=== PATIENT | male | born 1995 | race Caucasian/White ===

== ENCOUNTER 2024-01-15 22:27 | Emergency (ER) | payer OTHER ==
[~2024-01-15] VITALS: Ht 177.8 cm; Wt 90.0 kg
[~2024-01-15 22:27] MED LIST: DENIES CURRENT MEDS; DOXYCYCL HYC100 MG PO; SMZ-TMP DS1 TAB PO
[2024-01-15 22:30] VITALS: BP 165/73
[2024-01-15] MEDS ORDERED: NEOMYCIN-BACITRACIN-POLYMYXIN 0.5 GM/PAK PAK TOP ONE (22:40)
[2024-01-15] MEDS ORDERED: KEFLEX500 MG PO ×2 (23:03→23:32)
[2024-01-15] MEDS ORDERED: CEPHALEXIN MONOHYDRATE 500 MG/CAP PO ONE (23:05)
== END 2024-01-15 23:30 | disposition home or self-care (01) | DRG 605 ==
LOC: ED 22:27
DX: S61.432A Puncture wound without foreign body of left hand, initial encounter (principal); W26.0XXA Contact with knife, initial encounter